=== PATIENT | female | born 1995 | race African-American/Black ===

== ENCOUNTER 2016-11-27 09:16 | Emergency (ER) | payer OTHER ==
[~2016-11-27] VITALS: Ht 154.9 cm; Wt 59.0 kg
[2016-11-27] MEDS ORDERED: SODIUM CHLORIDE 0.9% 1,000 ML IV ONE (09:39)
[2016-11-27] MEDS ORDERED: KETOROLAC 30 MG/1 ML ONE (09:48)
[2016-11-27] MEDS ORDERED: ASPIRIN 81 MG TABLET CHEW ONE (09:48)
[2016-11-27] MEDS ORDERED: ONDANSETRON 2MG/ML, 2ML ONE (09:48)
[2016-11-27] MEDS ORDERED: MORPHINE SULFATE 4 MG/ML, 1ML IVPush PRN (10:00)
[2016-11-27] MEDS ORDERED: KETOROLAC 30 MG/1 ML IVPush ONE (10:00)
[2016-11-27] MEDS ORDERED: ONDANSETRON 2MG/ML, 2ML IVPush ONE (10:00)
[2016-11-27] MEDS ORDERED: ASPIRIN 81 MG TABLET CHEW PO ONE (10:00)
[2016-11-27 10:40] LABS: BLOOD UREA NITROGEN 6 mg/dL (7-18)
[2016-11-27 10:47] LABS: ASPARTATE AMINO TRANSFERASE 76 U/L (15-37)
[2016-11-27 10:48] LABS: IS PT STATUS REG ER OR PRE ER? YES
[2016-11-27 10:49] VITALS: BP 119/77
== END 2016-11-27 11:49 | disposition home or self-care (01) ==
LOC: ED 10:28
DX: R09.1 Pleurisy (principal)
CPT/HCPCS: 36415; 71010; 80053; 83690; 84484; 85025; 85379; 85610; 85651; 85730; 93005; 96361; 96374; 96375; 99285; J1885; J2405; J7030